=== PATIENT | male | born 1955 | race Caucasian/White ===

== ENCOUNTER 2023-11-14 15:26 | Emergency (ER) | payer OTHER, SELFPAY ==
[2023-11-14 15:26] VITALS: BP 95/54; PULSE 94; RESP 22; TEMP 36.1; O2SAT 98; BMI 28.8
--- NOTE | 2023-11-14 15:50 | EDS_ITS ---
HPI History of Present Illness Chief Complaint: Back Detail of Chief Complaint: Acute on chronic lower back pain. Onset/Context/Timing Onset: Today and Yesterday Context: Gradual Onset Timing: Continuous Quality: Sharp Location: Lumbar Current Severity: Moderate Maximum Severity: Moderate Worsened by: improves with Movement Associated Symptoms Associated Symptoms: Negative for Numbness, Tingling, Radiation to Right Leg, Radiation to Left Leg, Fever, Abdominal Pain, Dysuria, Unable to Ambulate, Unable to Transfer, Urinary Retention, Urinary Incontinence or Constipation Narrative Narrative: This is a 8-year-old male history of diabetes, degenerative disc disease with an L4-5 discectomy in the past in [place] where he lives. Also prior neck surgery for cervical stenosis. History of CAD with stents. He is on Plavix no other blood thinners. States that he is visiting here from [place]. He goes home tomorrow. He has had aggravated lower back pain. He denies any radiation to his legs. No bowel or bladder incontinence. No weakness. Prior similar symptoms: Yes and With Prior Back Pain Recent Illness/Hospitalization: No PFSH COUNTS INCLUDE 234 BEDS AT THE [facility] Medical History Back pain Neck pain Limb weakness Difficulty balancing Knee pain Fatigue Shoulder pain SOB (shortness of breath) Diabetes type 2, controlled Home Medications ?Medication ?Instructions ?Recorded ?Last Taken ?Type aspirin 81 mg chewable tablet 1 tab PO QDAY 11/12/23 Unknown History azithromycin 250 mg tablet See Rx Instructions PO .COMPLEX #6 11/12/23 Unknown Rx tabs cholecalciferol (vitamin D3) 50 50 mcg PO QDAY 11/12/23 Unknown History mcg (2,000 unit) capsule (Vitamin D3) clopidogrel 75 mg tablet 75 mg PO QDAY 11/12/23 Unknown History empagliflozin 25 mg tablet 25 mg PO QAM 11/12/23 Unknown History (Jardiance) gabapentin 300 mg capsule 300 mg PO TID 11/12/23 Unknown History isosorbide dinitrate 10 mg tablet 10 mg PO BID 11/12/23 Unknown History levomefolate calcium 7.5 mg tablet 7.5 mg PO QDAY 11/12/23 Unknown History (L-Methylfolate) losartan 50 mg tablet 50 mg PO QDAY 11/12/23 Unknown History metoprolol succinate 50 mg 50 mg PO QDAY 11/12/23 Unknown History tablet,extended release 24 hr omeprazole 40 mg capsule,delayed 40 mg PO QDAY 11/12/23 Unknown History release oxcarbazepine 150 mg tablet 150 mg PO QDAY 11/12/23 Unknown History rosuvastatin 20 mg tablet 20 mg PO QHS 11/12/23 Unknown History tamsulosin 0.4 mg capsule 0.4 mg PO QDAY 11/12/23 Unknown History venlafaxine 150 mg 150 mg PO QDAY 11/12/23 Unknown History capsule,extended release 24 hr oxycodone 5 mg capsule 5 mg PO Q4H PRN pain 2 days #6 caps 11/14/23 Unknown Rx Allergy/AdvReac Type Severity Reaction Status Date / Time NSAIDS (Non-Steroidal Allergy Mild Other Verified 11/14/23 15:26 Anti-Inflamma Social History Smoking Status: Never smoker ROS ROS ED ROS Narrative Acute on chronic back pain. No recent illness. Constitutional Constitutional ED: Denies chills or fever(s) Eyes Eyes: Denies blurry vision ENT ENT ED: Denies ear pain Cardiovascular Cardiovascular: Denies chest pain Respiratory/Chest Respiratory/Chest: Denies dyspnea Gastrointestinal Gastrointestinal: Denies abdominal pain, constipation, diarrhea, melena, nausea or vomiting Genitourinary Genitourinary ED: Denies dysuria or hematuria Musculoskeletal Musculoskeletal: Reports back pain and neck pain; Denies arthralgias or myalgias Integumentary Denies abscess or Abrasions Neurologic Neurologic: Denies headache(s) Psychiatric Psychiatric: Denies anxiety Endocrine Endocrinology: Denies cold intolerance Hematologic/Lymphatic Hematologic/Lymphatic: Denies easy bleeding Allergic/Immunologic Allergic/Immunologic ED: Denies mouth swelling, tongue swelling or urticaria EXAM Physical Exam Narrative Exam Narrative: Well-appearing 68-year-old male. Vital signs are stable and afebrile. Blood pressure 95/54 he normally runs between 100- 120. H EENT exam unremarkable. Neck nontender. Lungs clear. Heart regular rhythm rate about 90. Chest wall ribs nontender. Abdomen soft nontender. No pulsatile mass. Back well-healed prior neck and back surgery couple scars. Nontender. No signs of trauma. No bruising or redness. 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 Normal dorsi plantarflexion. Normal strength and sensation lower extremities. No cauda equina. No saddle anesthesia. Patient is awake and alert. Const Vital Signs: 11/14/23 15:26 Temperature 96.9 F L Temperature Source Temporal Pulse Rate 94 Respiratory Rate 22 H Blood Pressure 95/54 L Blood Pressure Mean 67 Pulse Ox 98 Oxygen Delivery Method Room Air Positive well nourished and well developed; Negative for cachectic, contractures or unkempt General Appearance ED: well developed and NAD; Negative for unkempt, cachectic, contractures or pallor Nutritional Appearance: Negative for cachectic HEENT Reports moist mucous membranes Negative for trauma or tenderness Eyes PERRL and EOMs intact bilaterally General Eye ED: Negative for pale conjunctiva Neck no lymphadenopathy, supple and no JVD General: Negative for tenderness Thyroid: Negative for other Chest Wall Chest: Negative for other Resp normal respiratory effort and clear to auscultation bilaterally Effort and Inspection: Negative for pain with movement Auscultation: Negative for rales, rhonchi, wheezes or diminished lung sounds Cardio regular rate, regular rhythm, S1 normal heart sound, S2 normal heart sound and no murmurs Palpation: Negative for palpable S3 Rate: Negative for bradycardia or tachycardic Rhythm: Negative for abnormal rhythm Bruits: Negative for other GI normal to inspection, nondistended, normoactive bowel sounds, soft to palpation, non-tender, non-distended and no masses Inspection: Negative for abdominal distention Palpation: Negative for tender, guarding, pulsatile mass or rebound tenderness present Back/Spine normal to inspection and no thoracic nor lumbar tenderness Cervical Spine: Negative for cervical spine tenderness and Negative for paracervical muscle tenderness Thoracic Spine / Upper Back: Negative for paraspinal muscle tenderness Lumbar Spine / Lower Back: straight leg raise negative bilaterally Extremity normal to inspection and no clubbing, cyanosis or edema General Extremety ED: Negative for edema or tenderness General Extremity: Negative for edema Neuro oriented x3 and no sensory deficits noted Sensorium / Orientation: alert; Negative for confused, lethargic or stuporous Motor Exam: strength 5/5 throughout Psych mental status grossly normal Appearance: Negative for unkempt Attitude: No agitated Mood & Affect: Negative for depressed, sad or tearful Skin no rashes or lesions noted and no wounds General Skin Exam: Negative for jaundice or pallor Lesions: No lesion noted Rashes: No rashes noted Trauma: Negative for abrasion or puncture Wounds: Negative for wounds noted MDM MDM MDM Narrative Medical decision making narrative: 68-year-old male with acute on chronic back pain. He is from out of [facility] and goes home tomorrow. He will be given an IM injection of morphine and p.o. Zofran. He will be given 6 oxycodone till he goes home. History & Record Review Discussion w/independent historian: Patient Additional record(s) reviewed:: No prior records Discharge Plan Triage Chief Complaint: Back ED Provider: Abbe Klein Dx/Rx/DC Orders Clinical Impression: Back pain, History of degenerative disc disease, History of diabetes mellitus, History of CAD (coronary artery disease) Instructions: ED Back Pain (Acute or Chronic) Prescriptions: New oxycodone 5 mg capsule 5 mg PO Q4H PRN (Reason: pain) 2 Days Qty: 6 0RF No Action gabapentin 300 mg capsule 300 mg PO TID rosuvastatin 20 mg tablet 20 mg PO QHS clopidogrel 75 mg tablet 75 mg PO QDAY tamsulosin 0.4 mg capsule 0.4 mg PO QDAY losartan 50 mg tablet 50 mg PO QDAY metoprolol succinate 50 mg tablet extended release 24 hr 50 mg PO QDAY omeprazole 40 mg capsule,delayed release(DR/EC) 40 mg PO QDAY venlafaxine 150 mg capsule,extended release 24hr 150 mg PO QDAY aspirin 81 mg tablet,chewable 1 tab PO QDAY Jardiance 25 mg tablet 25 mg PO QAM oxcarbazepine 150 mg tablet 150 mg PO QDAY levomefolate calcium [L-Methylfolate] 7.5 mg tablet 7.5 mg PO QDAY isosorbide dinitrate 10 mg tablet 10 mg PO BID Rx Instructions: allow nitrate-free interval of 12-14 hrs per 24-hr period cholecalciferol (vitamin D3) [Vitamin D3] 50 mcg (2,000 unit) capsule 50 mcg PO QDAY azithromycin 250 mg tablet See Rx Instructions PO .COMPLEX Qty: 6 0RF Rx Instructions: take 500 mg today (day 1), then 250 mg for 4 days (days 2-5) PO Primary Care Provider: [facility] Doctor,Out of Referrals: [facility] Doctor,Out of [Primary Care Provider] - 3-5 Days if not improving Activity Restrictions/Additional Instructions: Follow-up with your doctor when you get back to [place] if not improving. Oxycodone as needed for pain. Print Language: Khmer Disposition Disposition: Home, Self Care
[2023-11-14] MEDS: morphine 10 MG/ML Syringe IM (15:54)
[2023-11-14] MEDS: Ondansetron ODT 4 MG Tablet PO (15:54)
[2023-11-14 16:15] VITALS: BP 104/65; PULSE 93; RESP 16; TEMP 36.5; O2SAT 96
== END 2023-11-14 16:17 | disposition home or self-care (01) ==
PROVIDERS: Emergency Provider Emergency Medicine; Visit Provider Emergency Medicine
DX: M54.50 Low back pain, unspecified (principal); E11.9 Type 2 diabetes mellitus without complications; G89.29 Other chronic pain; M54.2 Cervicalgia; I25.10 Atherosclerotic heart disease of native coronary artery without angina pectoris; Z95.5 Presence of coronary angioplasty implant and graft; Z79.02 Long term (current) use of antithrombotics/antiplatelets; Z79.82 Long term (current) use of aspirin; Z79.84 Long term (current) use of oral hypoglycemic drugs; Z79.899 Other long term (current) drug therapy
CPT/HCPCS: 96372; 99282